=== PATIENT | male | born 2000 | race Caucasian/White ===

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

== ENCOUNTER 2023-09-20 18:33 | Emergency (ER) | payer OTHER ==
--- OUTSIDE RECORDS SUMMARY | 2023-09-20 18:36 | XMS REPORT | Continuity of Care Document ---
Author Name Unknown Address [address] [place] [address] [facility] Address [address] [place] [address] Care Team Providers Care Mother Repairer Name Role Phone Pcp, Patient Does Not Have A Primary Care Physic chuck Nurse, [facility] Attending Clinician Un available Edouard Lea Attending Clinician [phone] EDOUARD HUTCHISON Attending Clinician Unavailable BRITTANY MULTANI Attending Clinician Unavailab le Doctor Unassigned, [place] Attending Clinician U navailable 1, [facility] Attending Clinician Unavailable Marissa Carolina MD Attending Clinician [phone] Margaret Moise Attending Clinician [phone] EDOUARD HUTCHISON Admitting Clinician Unavailable Payers Payer Name Policy Type Policy Number Effective Date Expirati on Date Source Problems Condition Name Condition Details Condition Category Status Onset Date Resolution Date Last Treatment Date Treating Clinician Comments Source No known active problems No known active problems Disease [facility] Allergies, Adverse Reactions, Alerts Allergy Name Allergy Type Status Severity Reaction(s) Onset Date Inactive Date Treating Clinician Comments Source NO KNOWN ALLERGIE S Drug Class Active [facility] Social History Social Habit Start Date Stop Date Quantity Comments Source Exposure to SARS-CoV-2 (event) 2022-02-09 00:00:00 2022-02-19 19:46:00 Not sure [facility] Sex Assigned At 2000 00:00:00 2000 00:00:00 [facility] Smoking Status Start Date Stop Date Source Tobacco smoking consumption unknown [facility] Medications Ordered Medication Name Filled Medication Name Start Date Stop Date Current Medication? Ordering Clinician Indication Dosage Frequency Signature (SIG) Comments Components Source No known medications 2020-05 13:15: 28 No [facility] lidocaine 1% (XYLOCAINE) 10 mg/mL (1 %) injection 2 mL 10-11 16:45: 00 10-11 15:53 :00 No 2mL 2 mL, Infiltrati on, ONCE, 1 dose, 10/11/20 at 1145, DAQUAN [facility] mupirocin (BACTROBAN) 2 % cream 10-11 00:00: 00 Yes [id number] Apply to affected area(s) 3 (three) times daily. [facility] amoxicillin -clavulanat e 875-125 mg per tablet 10-11 00:00: 00 10-22 04:59 :00 No [id number] 1{tbl} Take 1 tablet by mouth every 12 (twelve) hours for 10 days. [facility] Vital Signs Vital Name Observation Time Observation Value Comments S ourlisandro Systolic blood pressure 2022-02-20 00:48:00 148 mm[Hg] [facility] Diastolic blood pressure 2022-02-20 00:48:00 97 mm[Hg] [facility] Heart rate 2022-02-20 00:48:00 80 /min [facility] Body temperature 2022-02-20 00:48:00 36.78 Mayda [facility] Respiratory rate 2022-02-20 00:48:00 17 /min [facility] Body height 2022-02-20 00:48:00 172.7 cm [facility] Body weight 2022-02-20 00:48:00 81.647 kg pt reports [facility] BMI 2022-02-20 00:48:00 27.37 kg/m2 [facility] Oxygen saturation in Arterial blood by Pulse oximetry 2022-02-20 00:48:00 97 /min [facility] Systolic blood pressure 2021-04-15 18:55:00 139 mm[Hg] [facility] Diastolic blood pressure 2021-04-15 18:55:00 85 mm[Hg] [facility] Heart rate 2021-04-15 18:55:00 80 /min [facility] Body temperature 2021-04-15 18:55:00 37.17 Mayda [facility] Respiratory rate 2021-04-15 18:55:00 16 /min [facility] Body height 2021-04-15 18:55:00 172.7 cm [facility] Body weight 2021-04-15 18:55:00 80.457 kg [facility] BMI 2021-04-15 18:55:00 26.97 kg/m2 [facility] Body mass index (BMI) [Percentile] Per age and sex 2021-04-15 18:55:00 87.26 % [facility] Oxygen saturation in Arterial blood by Pulse oximetry 2021-04-15 18:55:00 98 /min [facility] Systolic blood pressure 2020-10-21 23:52:00 146 mm[Hg] [facility] Diastolic blood pressure 2020-10-21 23:52:00 77 mm[Hg] [facility] Heart rate 2020-10-21 23:52:00 87 /min [facility] Body temperature 2020-10-21 23:52:00 37.33 Mayda [facility] Respiratory rate 2020-10-21 23:52:00 14 /min [facility] Body weight 2020-10-21 23:52:00 81.647 kg [facility] Oxygen saturation in Arterial blood by Pulse oximetry 2020-10-21 23:52:00 97 /min [facility] Systolic blood pressure 2020-10-11 15:34:00 139 mm[Hg] [facility] Diastolic blood pressure 2020-10-11 15:34:00 84 mm[Hg] [facility] Heart rate 2020-10-11 15:34:00 86 /min [facility] Body temperature 2020-10-11 15:34:00 36.94 Mayda [facility] Respiratory rate 2020-10-11 15:34:00 18 /min [facility] Body height 2020-10-11 15:34:00 172.7 cm [facility] Body weight 2020-10-11 15:34:00 79.379 kg [facility] BMI 2020-10-11 15:34:00 26.61 kg/m2 [facility] Oxygen saturation in Arterial blood by Pulse oximetry 2020-10-11 15:34:00 99 /min [facility] Procedures Procedure Date / Time Performed Performing Clinician Source [facility] PATIENT FINANCIAL POLICY 2022-02-20 00:14:27 Doctor Unassigned, [place] [facility] NO SHOW OR MISSED APPOINTMENT POLICY ACKNOWLEDGEMENT 2022-02-20 00:14:13 Doctor Unassigned, [place] [facility] CONSENT/REFUSAL FOR DIAGNOSIS AND TREATMENT 2022-02-20 00:13:57 Doctor Unassigned, [place] [facility] ASSIGNMENT OF BENEFITS 2022-02-20 00:13:38 Kinga r Unassigned, [place] [facility] POCT GRP A STREP (MOLECULAR) 2021-04-15 19:03:00 Edouard Hutchison [facility] CONSENT/REFUSAL FOR DIAGNOSIS AND TREATMENT 2021-04-15 18:49:39 Doctor Unassigned, [place] [facility] ASSIGNMENT OF BENEFITS 2021-04-15 18:49:28 Docto r Unassigned, [place] [facility] XR ANKLE 3+ VW LEFT 2020-10-22 00:23:26 Margaret Barone [facility] NOTICE OF PRIVACY PRACTICES 2020-10-21 23:44:25 Doctor Unassigned, [place] [facility] CONSENT/REFUSAL FOR DIAGNOSIS AND TREATMENT 2020-10-21 23:44:06 Doctor Unassigned, [place] [facility] ED LACERATION REPAIR 2020-10-11 17:08:00 Teresa Hutchison [facility] XR HAND <3 VW LEFT 2020-10-11 16:40:57 Edouard Hutchison [facility] Encounters Start Date/Time End Date/Time Encounter Type Admission Type Attending Clinicians Care Facility Care Department Encounter ID Source 2022-02-19 19:30:00 2022-02-19 19:30:00 Nurse Visit Nurse, [facility] MEDICAL OFFICE BUILDING [id number] [id number] [id number] [id number] [facility] 2022-02-19 19:30:00 2022-02-19 19:27:55 [facility] [id number] [facility] 2022-02-19 19:30:00 2022-02-19 19:27:55 Outpatient R [facility] [id number] [facility] 2022-02-19 19:00:00 2022-02-19 19:00:00 [facility] [id number] [facility] 2022-02-19 19:00:00 2022-02-19 19:00:00 Outpatient R [facility] [id number] [facility] 2022-02-19 00:00:00 2022-02-19 00:00:00 Orders Only Doctor Unassigned, [place] [facility] 1.84.114 350.1.13.10 4.2.7.2.686 [id number] [facility] 2021-04-15 12:51:56 2021-04-15 13:11:56 Urgent Care Lisbeth [facility] MEDICAL OFFICE BUILD[facility] 1.840.114 350.1.13.10 4.2.7.2.686 [id number] [facility] 2021-04-15 13:00:00 2021-04-15 13:00:00 Outpatient EDOUARD GOODE [facility] [id number] [facility] 2021-04-15 00:00:00 2021-04-15 00:00:00 Letter (Out) Doctor Unassigned, [place] [facility] [id number] 350.1.13.10 4.2.7.2.686 [id number] [facility] 2021-04-15 00:00:00 2021-04-15 00:00:00 Letter (Out) Doctor Unassigned, [place] [facility] [id number] 350.1.13.10 4.2.7.2.686 [id number] [facility] 2021-04-15 00:00:00 2021-04-15 00:00:00 Orders Only Doctor Unassigned, [place] [facility] [id number] 350.1.13.10 4.2.7.2.686 [id number] [facility] 2020-10-21 22:29:17 2020-10-21 22:44:17 Cut Off Machine Helper Visit 1, [facility] ArelymataMarissa [facility] [id number] 350.1.13.10 4.2.7.2.686 [id number] [facility] 2020-10-21 18:52:00 2020-10-21 22:01:00 Emergency Margaret Barone S [facility] [id number] 350.1.13.10 4.2.7.2.686 [id number] [facility] 2020-10-21 18:45:00 2020-10-21 18:45:00 Emergency X [facility] ERT [id number] [facility] 2020-10-21 15:45:00 2020-10-21 15:45:00 Outpatient R [facility] [id number] [facility] 2020-10-11 10:36:00 2020-10-11 12:33:00 Emergency EbEdouard payan [facility] [id number] 350.1.13.10 4.2.7.2.686 [id number] [facility] 2020-10-11 10:36:00 2020-10-11 12:33:00 Emergency X EDOUARD HUTCHISON [facility] ERT [id number] [facility] Results Test Description Test Time Test Comments Results Result Co mments Source [facility] VW [id number] 00:42:19 Nondisplaced lateral malleolus fracture with overlying soft tissueswelling. Preliminary Report Dictated by Resident: Randolph Paz MD., have reviewed this study and agree with the abovereport.EXAM: XR ANKLE 3+ VW LEFT HISTORY: 20 years-old Male with left ankle pain COMPARISON: None.FINDINGS: Radiographs of the left hand demonstrate a nondisplaced transverselyoriented fracture of the distal fibula below the level of the syndesmosiswith overlying soft tissue swelling. Prominent Stieda process is noted.Small tibiotalar joint effusion. Ankle mortise is anatomic. Mild distalpretibial soft tissue swelling. [facility], Radiant Results Inft User - 10/21/2020 7:43 PM CDTFormatting of thisnote might be different from the original.EXAM: XR ANKLE 3+ VW LEFTHISTORY: 20 years- old Male with left ankle pain COMPARISON: None.FINDINGS: Radiographs of the left hand demonstrate a nondisplaced transverselyoriented fracture of the distal fibula below the level of the syndesmosiswith overlying soft tissue swelling. Prominent Stieda process is noted.Small tibiotalar joint effusion. Ankle mortise is anatomic. Mild distalpretibial soft tissue swelling.IMPRESSIONNondisplaced lateral malleolus fracture with overlying soft tissueswelling.Preliminary Report Dictated by Resident: Randolph Collins MD., have reviewed this study and agree with the abovereport.[facility]
[2023-09-20 19:28] LABS: Specific Gravity > 1.030 (1.005-1.030); Urine Bilirubin NEGATIVE (Negative); Urine Blood 1+ (Negative); Urine Clarity Clear (Clear); Urine Color Yellow (Yellow); Urine Glucose NEGATIVE (Negative); Urine Ketones 1+ (Negative); Urine Micro Reflex YN NO BILL NO MICROSCOPIC; Urine Nitrite NEGATIVE (Negative); Urine Protein TRACE (Negative); Urine Urobilinogen 3+ (Normal)
--- NOTE | 2023-09-20 19:28 | RAD REPORT ---
EXAM DESCRIPTION: US - Scrotum Testicles - 09/20/2023 7:18 pm CLINICAL HISTORY: PAIN COMPARISON: No comparisons FINDINGS: The right testicle 3.8 x 3.0 x 2.2 cm. No intratesticular masses or evidence of testicular torsion. The left testicle 4.7 x 3.2 x 2.2 cm. No intratesticular masses or evidence of testicular torsion. Both epididymides are normal in size and appearance. No pathologic fluid collections. IMPRESSION: No acute abnormality seen.
[2023-09-20 19:35] LABS: Sqamous Epithelial None Seen /HPF (None Seen); Urine Bacteria <20 /HPF (<20); Urine Culture Reflex Order NOT NEEDED; Urine Mucus Slight /HPF (None Seen); Urine WBC <5 /HPF (<5)
--- NOTE | 2023-09-20 20:31 | EDPHYS ---
Physician Documentation [facility] Name: Randy Lopes Age: 23 yrs Sex: Male : 2000 Arrival Date: 09/20/2023 Time: 18:33 Bed 3 Private MD: ED Physician Alejandro Hess HPI: 09/19 19:52 This 23 yrs old Male presents to ER via Ambulatory with complaints of Testicular Pain. rt 19:52 Patient presents to the ED with right-sided testicular pain starting about 3. He states rt it is worse when he is walking around. States that his pain goes away when he lies down. Denies hematuria, dysuria, discharge, abdominal pain, flank pain. Denies other acute complaints, symptoms are moderate severity, no other aggravating or elevating factors.. Historical: - Allergies: 18:39 No Known Allergies; iw - Home Meds: 18:39 None [Active]; iw - PMHx: 18:39 None; iw - PSHx: 18:39 None; iw - Immunization history:: Adult Immunizations not up to date. - Infectious Disease History:: Denies. - Social history:: Smoking status: Patient denies any tobacco usage or history of. - Family history:: not pertinent. ROS: 19:52 Constitutional: Negative for fever, chills, and weight loss, Cardiovascular: Negative rt for chest pain, palpitations, and edema, Respiratory: Negative for shortness of breath, cough, wheezing, and pleuritic chest pain, Abdomen/GI: Negative for abdominal pain, nausea, vomiting, diarrhea, and constipation, Back: Negative for injury and pain, Skin: Negative for injury, rash, and discoloration, Neuro: Negative for headache, weakness, numbness, tingling, and seizure, Psych: Negative for depression, anxiety, suicide ideation, homicidal ideation, and hallucinations, 19:52 : Positive for testicular pain Negative for hematuria, Exam: 19:52 Constitutional: This is a well developed, well nourished patient who is awake, alert, rt and in no acute distress. Head/Face: Normocephalic, atraumatic. Chest/axilla: Normal chest wall appearance and motion. Nontender with no deformity. No lesions are appreciated. Cardiovascular: Regular rate and rhythm with a normal S1 and S2. No gallops, murmurs, or rubs. Normal PMI, no JVD. No pulse deficits. Respiratory: Lungs have equal breath sounds bilaterally, clear to auscultation and percussion. No rales, rhonchi or wheezes noted. No increased work of breathing, no retractions or nasal flaring. Abdomen/GI: Soft, non-tender, with normal bowel sounds. No distension or tympany. No guarding or rebound. No evidence of tenderness throughout. Skin: Warm, dry with normal turgor. Normal color with no rashes, no lesions, and no evidence of cellulitis. MS/ Extremity: Pulses equal, no cyanosis. Neurovascular intact. Full, normal range of motion. Neuro: Awake and alert, GCS 15, oriented to person, place, time, and situation. Cranial nerves II-XII grossly intact. Motor strength 5/5 in all extremities. Sensory grossly intact. Cerebellar exam normal. Normal gait. 19:52 : Penis, scrotum within normal limits, no testicular tenderness, masses felt., Vital Signs: 18:50 BP 150 / 95; Pulse 67; Resp 18; Temp 98.6(O); Pulse Ox 98% ; db 19:25 BP 122 / 62; Pulse 63; Resp 16; Pulse Ox 97% on R/A; km8 20:33 BP 124 / 69; Pulse 57; Resp 16; Pulse Ox 100% on R/A; km8 Rupali Coma Score: 19:13 Eye Response: spontaneous(4). Motor Response: obeys commands(6). Verbal Response: km8 oriented(5). Total: 15. MDM: 18:40 Patient medically screened. rt 20:31 Differential diagnosis: UTI, urinary retention, urethritis. Data reviewed: vital signs, sp4 nurses notes, lab test result(s), urinalysis, radiologic studies, ultrasound. ED course: Patient care assumed from Dr. Sparks. Patient was ordered to have blood work and also CT to rule out kidney stone. Patient at this time declines labs and CAT scan. Patient states he does not have any symptoms indicative of kidney stone. Patient wishes to go home and do blood work for his primary care physician. Patient was given his urinalysis report and advised to have screening lab work to evaluate trace proteinuria. Testicular ultrasound is normal today.. 09/19 18:46 Order name: UAM; Complete Time: 20:26 rt 09/19 18:52 Order name: US Scrotum Testicles; Complete Time: 19:33 iw Administered Medications: No medications were administered Disposition Summary: 09/20/23 20:30 Discharge Ordered Problem: new sp4 Symptoms: have improved sp4 Condition: Stable sp4 Diagnosis - Proteinuria, unspecified sp4 - Acute testicular pain sp4 Followup: sp4 - With: Private Physician - When: 1 - 2 days - Reason: Recheck today's complaints Discharge Instructions: - Discharge Summary Sheet sp4 - Proteinuria sp4 Forms: - Patient Portal Instructions sp4 Signatures: Dispatcher [employer] EDJennifer Gramajo RN RN iw Armen Sparks MD MD rt Alejandro Hess MD MD sp4 Corrections: (The following items were deleted from the chart) 18:47 18:47 Scrotum Testicles+US.RAD.BRZ ordered. EDMS EDMS 18:47 18:47 Urinalysis W/Microscopic+U.LAB.BRZ ordered. EDMS EDMS 19:41 19:41 Abdomen Pelvis Wo Con+CT.RAD.BRZ ordered. EDMS EDMS
--- NOTE | 2023-09-20 20:31 | ER ---
Nurse's Notes [facility] Name: Randy Lopes Age: 23 yrs Sex: Male : 2000 Arrival Date: 09/20/2023 Time: 18:33 Bed 3 Private MD: Diagnosis: Proteinuria, unspecified;Acute testicular pain Presentation: 09/19 18:38 Chief complaint: Patient states: right testicle started hurting today , I was at work iw all day and it started hurting. Coronavirus screen: At this time, the client does not indicate any symptoms associated with coronavirus-19. Ebola Screen: Patient negative for fever greater than or equal to 101.5 degrees Fahrenheit, and additional compatible Ebola Virus Disease symptoms Patient denies exposure to infectious person. Patient denies travel to an Ebola-affected area in the 21 days before illness onset. No symptoms or risks identified at this time. Initial Sepsis Screen: Does the patient meet any 2 criteria? No. Patient's initial sepsis screen is negative. Does the patient have a suspected source of infection? No. Patient's initial sepsis screen is negative. Risk Assessment: Do you want to hurt yourself or someone else? Patient reports no desire to harm self or others. Onset of symptoms was September 20, 2023. 18:38 Method Of Arrival: Ambulatory iw 18:38 Acuity: SOL 3 iw Historical: - Allergies: 18:39 No Known Allergies; iw - Home Meds: 18:39 None [Active]; iw - PMHx: 18:39 None; iw - PSHx: 18:39 None; iw - Immunization history:: Adult Immunizations not up to date. - Infectious Disease History:: Denies. - Social history:: Smoking status: Patient denies any tobacco usage or history of. - Family history:: not pertinent. Screenin:13 [facility] ED Fall Risk Assessment (Adult) History of falling in the last 3 months, km8 including since admission No falls in past 3 months (0 pts) Confusion or Disorientation No (0 pts) Intoxicated or Sedated No (0 pts) Impaired Gait No (0 pts) Mobility Assist Device Used No (0 pt) Altered Elimination No (0 pt) Score/Fall Risk Level 0 - 2 = Low Risk Oriented to surroundings, Maintained a safe environment, Educated pt \\T\\ family on fall prevention, incl call for assistance when getting out of bed, Assessed \\T\\ reinforced patient's understanding of fall precautions, Provided non-skid footwear. Abuse screen: Denies threats or abuse. Denies injuries from another. Nutritional screening: No deficits noted. Tuberculosis screening: No symptoms or risk factors identified. Assessment: 18:59 Reassessment: Patient appears in no apparent distress at this time. Patient and/or db family updated on plan of care and expected duration. Pain level reassessed. Patient is alert, oriented x 3, equal unlabored respirations, skin warm/dry/pink. RIGHT TESTICULAR PAIN. Pain: Complains of pain in pelvis. Neuro: Level of Consciousness is awake, alert, obeys commands, Oriented to person, place, time, situation. 19:02 Reassessment: ULTRASOUND AT BEDSIDE. db 19:13 Reassessment: Patient appears in no apparent distress at this time. Patient and/or km8 family updated on plan of care and expected duration. Pain level reassessed. Patient is alert, oriented x 3, equal unlabored respirations, skin warm/dry/pink. General: Appears in no apparent distress. comfortable, Behavior is calm, cooperative, appropriate for age. Pain: Complains of pain in right testicle Pain currently is 8 out of 10 on a pain scale. Neuro: Level of Consciousness is awake, alert, obeys commands, Oriented to person, place, time, situation. Cardiovascular: Denies chest pain, shortness of breath, Patient's skin is warm and dry. Respiratory: Airway is patent Respiratory effort is even, unlabored, Respiratory pattern is regular, symmetrical. GI: No signs and/or symptoms were reported involving the gastrointestinal system. : Reports right testicular pain. EENT: No signs and/or symptoms were reported regarding the EENT system. Derm: Skin is intact, is healthy with good turgor, Skin is dry, Skin is pink, warm \\T\\ dry. normal, Skin temperature is warm. Musculoskeletal: Range of motion: intact in all extremities. 20:00 Reassessment: Patient appears in no apparent distress at this time. No changes from km8 previously documented assessment. Patient and/or family updated on plan of care and expected duration. Pain level reassessed. Patient is alert, oriented x 3, equal unlabored respirations, skin warm/dry/pink. 20:11 Reassessment: Patient states " I don't want to do labs or CT if I am going to see the 4 doctor again tomorrow." Provider notified. 20:27 Reassessment: Dr. Hess at bedside speaking with pt and giving Ultrasound results. km8 Vital Signs: 18:50 BP 150 / 95; Pulse 67; Resp 18; Temp 98.6(O); Pulse Ox 98% ; db 19:25 BP 122 / 62; Pulse 63; Resp 16; Pulse Ox 97% on R/A; km8 20:33 BP 124 / 69; Pulse 57; Resp 16; Pulse Ox 100% on R/A; km8 Almond Coma Score: 19:13 Eye Response: spontaneous(4). Motor Response: obeys commands(6). Verbal Response: km8 oriented(5). Total: 15. ED Course: 18:36 Patient arrived in ED. mr 18:37 Armen Sparks MD is Attending Physician. rt 18:39 Triage completed. iw 18:39 Arm band placed on. iw 18:40 Estefania Hodge is Primary Nurse. cp4 19:01 Patient has correct armband on for positive identification. Bed in low position. Call db light in reach. Side rails up X 1. Pulse ox on. NIBP on. 19:06 Report given to HUSEYIN SANABRIA. db 19:17 No provider procedures requiring assistance completed. km8 19:19 US Scrotum Testicles In Process Unspecified. EDNC 20:26 Attending Physician role handed off by Armen Sparks MD sp4 20:26 Alejandro Hess MD is Attending Physician. sp4 20:28 Provided Education on: d/c teaching. km8 20:33 Patient did not have IV access during this emergency room visit. km8 Administered Medications: No medications were administered Medication: 19:13 VIS not applicable for this client. km8 Outcome: 20:30 Discharge ordered by . sp4 20:33 Discharged to home ambulatory, with friend, km8 20:33 Condition: good 20:33 Discharge instructions given to patient, friend, Instructed on discharge instructions, follow up and referral plans. Demonstrated understanding of instructions, follow-up care, 20:33 Patient left the ED. km8 Signatures: Dispatcher [employer] EDNC Leandra Mcclellan, Reg Reg Jennifer Lorenzo, RN RN iw Essence Grant, RN RN db Armen Sparks MD MD rt Alejandro Hess MD MD sp4 Estefania Hodge cp4 Jessie Anderson RN RN km8
[2023-09-20 21:10] VITALS: BP 124/69; TEMP 98.6; O2SAT 100
== END 2023-09-20 20:33 | disposition home or self-care (01) ==
LOC: ER 18:33
DX: N50.811 Right testicular pain (principal); R80.9 Proteinuria, unspecified
CPT/HCPCS: 76870; 81001